=== PATIENT | female | born 1980 | race Caucasian/White ===

== ENCOUNTER 2020-12-07 16:05 | Inpatient (IN) | payer OTHER ==
[~2020-12-07] VITALS: Ht 175.3 cm; Wt 90.7 kg
[2020-12-07 16:36] LABS: HEMOGLOBIN 15.2 gm/dl (12.3-15.3); RED BLOOD COUNT 5.12 M/UL (4.00-5.10); WHITE BLOOD COUNT 8.6 K/UL (4.5-11.0)
[2020-12-07 16:46] LABS: BUN/CREATININE RATIO 10 (0-10)
[2020-12-07] MEDS ORDERED: NOVOLOG MI100 UNIT/1 SC ×2 (18:07)
[2020-12-07] MEDS ORDERED: PROMETHAZINE HC25 M1 PO (18:08)
[2020-12-07] MEDS ORDERED: LOPERAMIDE2 MG PO (18:08)
[2020-12-07] MEDS ORDERED: PROTONIX40 MG PO (18:08)
[2020-12-07] MEDS ORDERED: TRULICITY0.75 MG/0. SQ (18:08)
[2020-12-08 05:17] LABS: HEMOGLOBIN 12.8 gm/dl (12.3-15.3); RED BLOOD COUNT 4.38 M/UL (4.00-5.10)
[2020-12-08 06:07] LABS: BUN/CREATININE RATIO 17 (0-10)
[2020-12-09] MEDS ORDERED: ATORVASTATIN CA20 MG PO (10:18)
[2020-12-09] MEDS ORDERED: ASPIRIN EC81 MG PO (10:18)
[2020-12-09] MEDS ORDERED: BRILINTA 90 MG90 MG PO (10:18)
[2020-12-09] MEDS ORDERED: LOPRESSOR 25 MG25 MG PO (10:31)
== END 2020-12-09 13:58 | disposition home or self-care (01) | DRG 282 ==
LOC: ER1 16:05 → CDU 17:48 → PROG CARE 17:48
PROVIDERS: Physician Assistant; ADMIT Internal Medicine
PROC: B24BZZ4 Ultrasonography of Heart with Aorta, Transesophageal (ICD-10-PCS; principal; 2020-12-07)
PROC: 4A023N7 Measurement of Cardiac Sampling and Pressure, Left Heart, Percutaneous Approach (ICD-10-PCS; 2020-12-07)
PROC: B2111ZZ Fluoroscopy of Multiple Coronary Arteries using Low Osmolar Contrast (ICD-10-PCS; 2020-12-07)
DX: I21.4 Non-ST elevation (NSTEMI) myocardial infarction (principal); E11.9 Type 2 diabetes mellitus without complications; Z20.822 Contact with and (suspected) exposure to COVID-19; I10 Essential (primary) hypertension; K21.9 Gastro-esophageal reflux disease without esophagitis; Z79.82 Long term (current) use of aspirin; Z79.4 Long term (current) use of insulin; Z90.710 Acquired absence of both cervix and uterus
CPT/HCPCS: ECHO; 36415; 71045; 80053; 82550; 82553; 83874; 84484; 85025; 85730; 93005; 93306; 99152; 99153; 99285; C1769; C1887; J1644; J2250; J3010; J7040; Q9967; U0002